=== PATIENT | male | born 1940 | race Caucasian/White ===

== ENCOUNTER 2016-10-10 10:09 | Inpatient (IN) | payer OTHER ==
[~2016-10-10] VITALS: Ht 160 cm; Wt 37.9 kg
[~2016-10-10 10:09] MED LIST: ADVAIR 250/501 DISK IH; CYANOCOBALAM1000 MCG PO; FUROSEMIDE20 MG PO; LISINOPRIL2.5 MG PO; LO-DOSE ASPIRIN81 M2 PO; METFORMIN HCL1000 MG PO; METOPROLOL SUCC25 MG PO; PREDNISONE10 M1 PO; SIMVASTATIN20 MG PO; SIMVASTATIN5 MG PO; SPIRIVA RESPIMAT4 GM IH
[2016-10-10 11:17] LABS: EOSINOPHIL (%) 0.4 % (0-5); HEMATOCRIT 41.5 % (38.0-50.0); IMMATURE GRANULOCYTE (%) 0.5 % (0.0-0.7); INSTRUMENT ABS NEUTROPHIL CT 6.3 K/uL; LYMPHOCYTE COUNT 0.8 K/uL (1.0-2.8); MCH 31.8 PG (29.0-34.0); MCV 96.3 FL (86-99); MEAN PLAT.VOLUME 9.8 uM^3 (9.0-12.4); MONOCYTE (%) 7.5 % (3-12); MONOCYTE COUNT 0.6 K/uL (0-0.8); NEUTROPHIL COUNT 6.3 K/uL (1.8-6.4); PLATELET COUNT 147 K/uL (156-360); RBC DIS.WIDTH-CV 14.7 % (11.8-14.6); RBC DIS.WIDTH-SD 52.5 % (39-53); RED BLOOD COUNT 4.31 M/uL (4.00-5.50); WHITE BLOOD COUNT 7.8 K/uL (4.1-10.2)
[2016-10-10 11:27] LABS: INTER. NORMALIZED RATIO 1.1; PROTHROMBIN TIME 11.5 (9.2-11.2); PTT 22.4 (25-32)
[2016-10-10 11:34] LABS: CHLORIDE 106 mEq/L (99-109); POTASSIUM 5.1 mEq/L (3.7-5.4); SODIUM 140 mEq/L (136-147)
[2016-10-10 11:35] LABS: MAGNESIUM 1.8 mg/dL (1.3-2.7)
[2016-10-10 11:36] LABS: GLUCOSE 224 mg/dL (70-99)
[2016-10-10 11:37] LABS: ANION GAP 15 MEQ/L (2-14)
[2016-10-10 11:39] LABS: GFR ESTIMATE (CALCULATED) > 59 mL/min/
[2016-10-10 11:40] LABS: UREA NITROGEN (BUN) 17 mg/dL (9-23)
[2016-10-10 11:44] LABS: TROP-I INTERPRETATION NEGATIVE; TROPONIN-I 0.01 ng/mL (0.0-0.30)
[2016-10-10 13:27] LABS: INFLUENZA A VIRAL ANTIGEN NEGATIVE; INFLUENZA B VIRAL ANTIGEN NEGATIVE
[2016-10-10 14:41] LABS: ADD MIUA? YES; BILIRUBIN NEGATIVE; BLOOD NEGATIVE; COLOR YELLOW ((YELLOW)); GLUCOSE (STRIP) 150; KETONES NEGATIVE; LEUKOCYTES SMALL; NITRITE NEGATIVE; PROTEIN (STRIP) 30; SPECIFIC GRAVITY 1.017 (1.000-1.030); UROBILINOGEN 0.2 MG/DL (0.2-1.0)
[2016-10-10 14:45] LABS: BACTERIA RARE /HPF; EPITHELIAL CELLS RARE /HPF; MUCUS TRACE /LPF; RED BLOOD CELLS 0-5 /HPF (0-5); WHITE BLOOD CELLS 0-5 /HPF (0-5)
[2016-10-10] MEDS ORDERED: FLOVENT 11120 INHALA IH (16:18)
[2016-10-10] MEDS ORDERED: METOPROLOL TART25 MG PO (16:18)
[2016-10-10] MEDS ORDERED: DUONEB 2.5-0.5 M3 ML AEROSOL (16:19)
[2016-10-10] MEDS ORDERED: LISINOPRIL2.5 MG PO (16:19)
[2016-10-10 18:37] LABS: POINT-OF-CARE METER ID UU13113702
[2016-10-10 18:52] LABS: TROP-I INTERPRETATION NEGATIVE; TROPONIN-I 0.17 ng/mL (0.0-0.30)
[2016-10-10 21:55] VITALS: BP 130/69
[2016-10-11 01:02] LABS: TROP-I INTERPRETATION NEGATIVE; TROPONIN-I 0.08 ng/mL (0.0-0.30)
[2016-10-11 04:00] VITALS: BP 131/69
[2016-10-11 07:18] LABS: ANION GAP 14 MEQ/L (2-14); CHLORIDE 109 MEQ/L (99-109); GFR ESTIMATE (CALCULATED) > 59 mL/min/; GLUCOSE 204 mg/dL (70-99); POTASSIUM 4.3 MEQ/L (3.7-5.4); SAMPLE HEMOLYSIS CHECK 0; SAMPLE ICTERIC CHECK 0; SAMPLE LIPEMIA CHECK 0; SODIUM 141 MEQ/L (136-147); UREA NITROGEN (BUN) 17 mg/dL (9-23)
[2016-10-11 07:59] VITALS: BP 109/64
[2016-10-11 11:11] VITALS: BP 108/64
[2016-10-11 11:16] LABS: POINT-OF-CARE METER ID UU14174225
[2016-10-11 12:33] LABS: TROP-I INTERPRETATION NEGATIVE; TROPONIN-I 0.04 ng/mL (0.0-0.30)
[2016-10-11 13:51] LABS: D-DIMER ELISA > 4.00 mg/L FEU (< 0.57)
[2016-10-11 16:00] VITALS: BP 106/65
[2016-10-11 19:44] VITALS: BP 116/65
[2016-10-12 00:10] VITALS: BP 112/66
[2016-10-12 04:43] VITALS: BP 110/57
[2016-10-12 07:10] LABS: HEMATOCRIT 37.1 % (38.0-50.0); MCH 31.4 PG (29.0-34.0); MCV 92.5 FL (86-99); MEAN PLAT.VOLUME 10.2 uM^3 (9.0-12.4); PLATELET COUNT 162 K/uL (156-360); RBC DIS.WIDTH-CV 14.8 % (11.8-14.6); RBC DIS.WIDTH-SD 50.4 % (39-53); RED BLOOD COUNT 4.01 M/uL (4.00-5.50); WHITE BLOOD COUNT 6.4 K/uL (4.1-10.2)
[2016-10-12 07:42] LABS: ANION GAP 9 MEQ/L (2-14); CHLORIDE 108 MEQ/L (99-109); GFR ESTIMATE (CALCULATED) > 59 mL/min/; GLUCOSE 216 mg/dL (70-99); POTASSIUM 4.2 MEQ/L (3.7-5.4); SAMPLE HEMOLYSIS CHECK 0; SAMPLE ICTERIC CHECK 0; SAMPLE LIPEMIA CHECK 0; SODIUM 141 MEQ/L (136-147); UREA NITROGEN (BUN) 15 mg/dL (9-23)
[2016-10-12 08:06] VITALS: BP 128/62
[2016-10-12 08:57] LABS: POINT-OF-CARE METER ID UU14174225
[2016-10-12 11:08] VITALS: BP 120/60
[2016-10-12 15:53] VITALS: BP 123/61
[2016-10-12 20:00] VITALS: BP 108/63
[2016-10-13] VITALS (7 sets, daily range): BP systolic 105–128; BP diastolic 58–85
[2016-10-13 07:39] LABS: HEMATOCRIT 37.6 % (38.0-50.0); MCH 31.6 PG (29.0-34.0); MCHC 33.5 G/DL (30.0-36.0); MCV 94.2 FL (86-99); PLATELET COUNT 160 K/uL (156-360); RBC DIS.WIDTH-CV 15.1 % (11.8-14.6); RED BLOOD COUNT 3.99 M/uL (4.00-5.50); WHITE BLOOD COUNT 8.3 K/uL (4.1-10.2)
[2016-10-13 07:57] LABS: ANION GAP 8 MEQ/L (2-14); CHLORIDE 103 MEQ/L (99-109); GFR ESTIMATE (CALCULATED) > 59 mL/min/; GLUCOSE 230 mg/dL (70-99); POTASSIUM 4.1 MEQ/L (3.7-5.4); SAMPLE HEMOLYSIS CHECK 0; SAMPLE ICTERIC CHECK 0; SAMPLE LIPEMIA CHECK 0; SODIUM 140 MEQ/L (136-147)
[2016-10-13 07:58] LABS: UREA NITROGEN (BUN) 24 mg/dL (9-23)
[2016-10-14 03:35] VITALS: BP 122/70
[2016-10-14 07:38] LABS: POINT-OF-CARE METER ID UU14174225
[2016-10-14 07:49] VITALS: BP 106/75
[2016-10-14 11:14] VITALS: BP 117/58
[2016-10-14 11:22] LABS: POINT-OF-CARE METER ID UU14174225
[2016-10-14 15:06] VITALS: BP 104/53
[2016-10-14 16:24] LABS: POINT-OF-CARE METER ID UU14174225
[2016-10-14 20:00] VITALS: BP 114/56
[2016-10-14 21:08] VITALS: BP 122/65
[2016-10-15] VITALS: BP 128/61
[2016-10-15 04:00] VITALS: BP 133/69
[2016-10-15 07:54] VITALS: BP 137/69
[2016-10-15 09:22] LABS: POINT-OF-CARE USER ID STWAMT
[2016-10-15 11:45] VITALS: BP 136/70
[2016-10-15 12:00] LABS: POINT-OF-CARE USER ID STWAMT
[2016-10-15 16:55] VITALS: BP 128/61
[2016-10-15 17:03] LABS: POINT-OF-CARE USER ID STWAMT
[2016-10-15 20:05] VITALS: BP 126/69
[2016-10-16 01:14] VITALS: BP 130/63
[2016-10-16 04:00] VITALS: BP 135/64
[2016-10-16 08:19] VITALS: BP 104/60
[2016-10-16 09:25] LABS: POINT-OF-CARE USER ID STWAMT
[2016-10-16 11:39] LABS: POINT-OF-CARE METER ID UU14174225
[2016-10-16 12:08] VITALS: BP 92/60
[2016-10-16 15:14] VITALS: BP 106/60
[2016-10-16 16:42] LABS: POINT-OF-CARE USER ID STWAMT
[2016-10-16 19:36] VITALS: BP 131/67
[2016-10-17 04:02] VITALS: BP 132/63
[2016-10-17 08:11] VITALS: BP 99/60
[2016-10-17 11:36] VITALS: BP 88/55
[2016-10-17 12:07] LABS: POINT-OF-CARE METER ID UU14174225
[2016-10-17 16:05] VITALS: BP 101/58
[2016-10-17 23:31] VITALS: BP 108/58
[2016-10-18 07:45] VITALS: BP 122/58
[2016-10-18 11:23] VITALS: BP 85/43
[2016-10-18 15:56] VITALS: BP 134/60
[2016-10-18 21:01] VITALS: BP 124/60
[2016-10-19 01:02] VITALS: BP 119/62
[2016-10-19 07:37] VITALS: BP 93/58
[2016-10-19 11:20] VITALS: BP 82/44
[2016-10-19 16:42] VITALS: BP 90/67
[2016-10-19 22:37] VITALS: BP 102/64
[2016-10-20 00:09] VITALS: BP 138/59
[2016-10-20 08:08] VITALS: BP 117/72
[2016-10-20 09:01] LABS: HEMATOCRIT 43.2 % (38.0-50.0); MCHC 34.3 G/DL (30.0-36.0); MCV 93.3 FL (86-99); MEAN PLAT.VOLUME 9.7 uM^3 (9.0-12.4); PLATELET COUNT 178 K/uL (156-360); RBC DIS.WIDTH-CV 14.2 % (11.8-14.6); RED BLOOD COUNT 4.63 M/uL (4.00-5.50); WHITE BLOOD COUNT 9.7 K/uL (4.1-10.2)
[2016-10-20 09:28] LABS: ANION GAP 9 MEQ/L (2-14); CHLORIDE 98 MEQ/L (99-109); GFR ESTIMATE (CALCULATED) > 59 mL/min/; GLUCOSE 131 mg/dL (70-99); POTASSIUM 3.8 MEQ/L (3.7-5.4); SAMPLE HEMOLYSIS CHECK 0; SAMPLE ICTERIC CHECK 0; SAMPLE LIPEMIA CHECK 0; SODIUM 137 MEQ/L (136-147); UREA NITROGEN (BUN) 20 mg/dL (9-23)
[2016-10-20 16:08] VITALS: BP 103/52
[2016-10-20 19:42] VITALS: BP 111/62
[2016-10-20 23:46] VITALS: BP 104/57
[2016-10-21 07:07] LABS: EOSINOPHIL (%) 0.6 % (0-5); EOSINOPHIL COUNT 0.1 K/uL (0-0.3); HEMATOCRIT 42.4 % (38.0-50.0); IMMATURE GRANULOCYTE (%) 1.4 % (0.0-0.7); IMMATURE GRANULOCYTE COUNT 0.1 K/uL; LYMPHOCYTE COUNT 1.3 K/uL (1.0-2.8); MCH 31.7 PG (29.0-34.0); MCHC 34.7 G/DL (30.0-36.0); MCV 91.4 FL (86-99); MEAN PLAT.VOLUME 10.2 uM^3 (9.0-12.4); MONOCYTE (%) 11.3 % (3-12); MONOCYTE COUNT 0.9 K/uL (0-0.8); NEUTROPHIL (%) 71.6 % (45-76); PLATELET COUNT 193 K/uL (156-360); RBC DIS.WIDTH-SD 47.4 % (39-53); RED BLOOD COUNT 4.64 M/uL (4.00-5.50); WHITE BLOOD COUNT 8.4 K/uL (4.1-10.2)
[2016-10-21 07:32] LABS: ANION GAP 8 MEQ/L (2-14); CHLORIDE 94 MEQ/L (99-109); GFR ESTIMATE (CALCULATED) > 59 mL/min/; GLUCOSE 184 mg/dL (70-99); SAMPLE HEMOLYSIS CHECK 0; SAMPLE ICTERIC CHECK 0; SAMPLE LIPEMIA CHECK 0; SODIUM 132 MEQ/L (136-147); UREA NITROGEN (BUN) 25 mg/dL (9-23)
[2016-10-21 07:33] LABS: POTASSIUM 4.6 MEQ/L (3.7-5.4)
[2016-10-21 07:36] VITALS: BP 118/79
[2016-10-21 14:29] VITALS: BP 90/50
[2016-10-22] VITALS: BP 87/56
[2016-10-22 07:14] LABS: EOSINOPHIL (%) 0.4 % (0-5); HEMATOCRIT 41.6 % (38.0-50.0); IMMATURE GRANULOCYTE (%) 1.3 % (0.0-0.7); IMMATURE GRANULOCYTE COUNT 0.1 K/uL; INSTRUMENT ABS NEUTROPHIL CT 6.7 K/uL; LYMPHOCYTE COUNT 1.3 K/uL (1.0-2.8); MCH 31.6 PG (29.0-34.0); MCHC 34.6 G/DL (30.0-36.0); MCV 91.2 FL (86-99); MEAN PLAT.VOLUME 9.8 uM^3 (9.0-12.4); MONOCYTE (%) 9.5 % (3-12); MONOCYTE COUNT 0.9 K/uL (0-0.8); NEUTROPHIL (%) 74.2 % (45-76); NEUTROPHIL COUNT 6.7 K/uL (1.8-6.4); PLATELET COUNT 191 K/uL (156-360); RBC DIS.WIDTH-SD 47.5 % (39-53); RED BLOOD COUNT 4.56 M/uL (4.00-5.50); WHITE BLOOD COUNT 9.1 K/uL (4.1-10.2)
[2016-10-22 07:44] LABS: ANION GAP 9 MEQ/L (2-14); CHLORIDE 97 MEQ/L (99-109); GFR ESTIMATE (CALCULATED) > 59 mL/min/; POTASSIUM 4.3 MEQ/L (3.7-5.4); SAMPLE HEMOLYSIS CHECK 0; SAMPLE ICTERIC CHECK 0; SAMPLE LIPEMIA CHECK 0; SODIUM 134 MEQ/L (136-147); UREA NITROGEN (BUN) 24 mg/dL (9-23)
[2016-10-22 07:46] LABS: GLUCOSE 94 mg/dL (70-99)
[2016-10-22 08:47] VITALS: BP 90/51
[2016-10-22 16:29] VITALS: BP 114/63
[2016-10-22 23:17] VITALS: BP 120/57
[2016-10-23 07:54] VITALS: BP 108/56
[2016-10-23 14:59] LABS: POINT-OF-CARE METER ID UU14174225
[2016-10-23 16:00] VITALS: BP 116/57
[2016-10-24 00:53] VITALS: BP 121/64
[2016-10-24 06:58] LABS: EOSINOPHIL (%) 0.3 % (0-5); HEMATOCRIT 42.6 % (38.0-50.0); IMMATURE GRANULOCYTE (%) 1.1 % (0.0-0.7); IMMATURE GRANULOCYTE COUNT 0.1 K/uL; INSTRUMENT ABS NEUTROPHIL CT 7.6 K/uL; LYMPHOCYTE COUNT 1.2 K/uL (1.0-2.8); MCH 31.5 PG (29.0-34.0); MCHC 34.7 G/DL (30.0-36.0); MCV 90.6 FL (86-99); MEAN PLAT.VOLUME 9.7 uM^3 (9.0-12.4); MONOCYTE COUNT 0.8 K/uL (0-0.8); NEUTROPHIL (%) 78.6 % (45-76); NEUTROPHIL COUNT 7.6 K/uL (1.8-6.4); PLATELET COUNT 196 K/uL (156-360); RBC DIS.WIDTH-CV 13.8 % (11.8-14.6); RBC DIS.WIDTH-SD 46.1 % (39-53); WHITE BLOOD COUNT 9.7 K/uL (4.1-10.2)
[2016-10-24 07:15] LABS: ANION GAP 11 MEQ/L (2-14); CHLORIDE 97 MEQ/L (99-109); GFR ESTIMATE (CALCULATED) > 59 mL/min/; GLUCOSE 91 mg/dL (70-99); SAMPLE HEMOLYSIS CHECK 0; SAMPLE ICTERIC CHECK 0; SAMPLE LIPEMIA CHECK 0; SODIUM 133 MEQ/L (136-147); UREA NITROGEN (BUN) 18 mg/dL (9-23)
[2016-10-24 08:01] VITALS: BP 94/55
[2016-10-24 16:03] VITALS: BP 92/44
[2016-10-24 16:39] VITALS: BP 147/58
[2016-10-24 23:36] VITALS: BP 106/67
[2016-10-25 08:00] VITALS: BP 101/64
[2016-10-25 08:01] LABS: EOSINOPHIL (%) 0.6 % (0-5); EOSINOPHIL COUNT 0.1 K/uL (0-0.3); HEMATOCRIT 39.8 % (38.0-50.0); IMMATURE GRANULOCYTE (%) 1.1 % (0.0-0.7); IMMATURE GRANULOCYTE COUNT 0.1 K/uL; INSTRUMENT ABS NEUTROPHIL CT 7.5 K/uL; MCH 31.7 PG (29.0-34.0); MCHC 34.2 G/DL (30.0-36.0); MCV 92.8 FL (86-99); MEAN PLAT.VOLUME 9.8 uM^3 (9.0-12.4); MONOCYTE (%) 7.2 % (3-12); MONOCYTE COUNT 0.7 K/uL (0-0.8); NEUTROPHIL (%) 80.2 % (45-76); NEUTROPHIL COUNT 7.5 K/uL (1.8-6.4); PLATELET COUNT 179 K/uL (156-360); RBC DIS.WIDTH-CV 14.1 % (11.8-14.6); RBC DIS.WIDTH-SD 47.8 % (39-53); RED BLOOD COUNT 4.29 M/uL (4.00-5.50); WHITE BLOOD COUNT 9.3 K/uL (4.1-10.2)
[2016-10-25 08:32] LABS: ANION GAP 8 MEQ/L (2-14); CHLORIDE 99 MEQ/L (99-109); GFR ESTIMATE (CALCULATED) > 59 mL/min/; GLUCOSE 91 mg/dL (70-99); POTASSIUM 4.6 MEQ/L (3.7-5.4); SAMPLE HEMOLYSIS CHECK 0; SAMPLE ICTERIC CHECK 0; SAMPLE LIPEMIA CHECK 0; SODIUM 135 MEQ/L (136-147); UREA NITROGEN (BUN) 18 mg/dL (9-23)
[2016-10-25 11:00] VITALS: BP 139/98
[2016-10-25 16:00] VITALS: BP 123/66
[2016-10-25 16:04] LABS: POINT-OF-CARE METER ID UU14174225
[2016-10-26] VITALS: BP 119/60
[2016-10-26 07:18] LABS: EOSINOPHIL (%) 0.4 % (0-5); IMMATURE GRANULOCYTE (%) 1.1 % (0.0-0.7); IMMATURE GRANULOCYTE COUNT 0.1 K/uL; INSTRUMENT ABS NEUTROPHIL CT 6.6 K/uL; LYMPHOCYTE COUNT 1.1 K/uL (1.0-2.8); MCH 31.9 PG (29.0-34.0); MCHC 34.7 G/DL (30.0-36.0); MCV 91.8 FL (86-99); MEAN PLAT.VOLUME 10.2 uM^3 (9.0-12.4); MONOCYTE (%) 7.5 % (3-12); MONOCYTE COUNT 0.6 K/uL (0-0.8); NEUTROPHIL (%) 78.4 % (45-76); NEUTROPHIL COUNT 6.6 K/uL (1.8-6.4); PLATELET COUNT 186 K/uL (156-360); RBC DIS.WIDTH-SD 47.4 % (39-53); RED BLOOD COUNT 4.14 M/uL (4.00-5.50); WHITE BLOOD COUNT 8.4 K/uL (4.1-10.2)
[2016-10-26 07:46] VITALS: BP 118/63
[2016-10-26 07:58] LABS: ANION GAP 9 MEQ/L (2-14); CHLORIDE 99 MEQ/L (99-109); GFR ESTIMATE (CALCULATED) > 59 mL/min/; GLUCOSE 60 mg/dL (70-99); SAMPLE HEMOLYSIS CHECK 0; SAMPLE ICTERIC CHECK 0; SAMPLE LIPEMIA CHECK 0; SODIUM 135 MEQ/L (136-147); UREA NITROGEN (BUN) 16 mg/dL (9-23)
[2016-10-26 11:32] VITALS: BP 93/55
[2016-10-26 11:41] LABS: POINT-OF-CARE METER ID UU14188625
[2016-10-26 12:50] VITALS: BP 110/56
[2016-10-26] MEDS ORDERED: LOPRESSOR25 MG PO (13:03)
[2016-10-26] MEDS ORDERED: PRAVASTATIN SOD40 MG PO (13:03)
[2016-10-26] MEDS ORDERED: BENADRYL25 MG PO (13:03)
[2016-10-26] MEDS ORDERED: FUROSEMIDE20 MG PO (13:04)
[2016-10-26] MEDS ORDERED: TYLENOL REGULA325 MG PO (13:04)
[2016-10-26] MEDS ORDERED: LEVEMIR100 UNIT/2 SC (13:05)
[2016-10-26] MEDS ORDERED: NOVOLOG PE100 UNITS/ SC (13:06)
[2016-10-26 15:17] VITALS: BP 154/65
== END 2016-10-26 15:54 | DRG 189 ==
LOC: EME 10:09 → EDOF 16:24 → 5SOUTH 16:24
PROVIDERS: Emergency Medicine; Internal Medicine; Physician Assistant Medical
PROC: 5A09357 Assistance with Respiratory Ventilation, Less than 24 Consecutive Hours, Continuous Positive Airway Pressure (ICD-10-PCS; principal; 2016-10-14)
DX: J96.21 Acute and chronic respiratory failure with hypoxia (principal); J44.1 Chronic obstructive pulmonary disease with (acute) exacerbation; I50.23 Acute on chronic systolic (congestive) heart failure; I69.351 Hemiplegia and hemiparesis following cerebral infarction affecting right dominant side; R64 Cachexia; I25.10 Atherosclerotic heart disease of native coronary artery without angina pectoris; E78.5 Hyperlipidemia, unspecified; Z99.81 Dependence on supplemental oxygen; I95.9 Hypotension, unspecified; Z87.891 Personal history of nicotine dependence; I25.2 Old myocardial infarction; Z95.1 Presence of aortocoronary bypass graft; J84.10 Pulmonary fibrosis, unspecified; I27.2 Other secondary pulmonary hypertension; I07.1 Rheumatic tricuspid insufficiency; E11.65 Type 2 diabetes mellitus with hyperglycemia; I11.0 Hypertensive heart disease with heart failure
CPT/HCPCS: 71010; 71020; 71260; 71275; 76882; 80048; 81003; 82140; 82565; 82948; 83605; 83735; 84484; 84520; 85025; 85027; 85379; 85610; 85730; 87040; 87086; 87502; 93005; 93306; 94640; 94640 76; 94660; 94668; 94760; 94799; 97530 GO; 97530 GP; 99202; 99281; 99285; J0692; J1650; J1815; J2405; J2920; J7030; J7040; J7050; J7512

== ENCOUNTER 2016-11-15 02:07 | Emergency (ER) | payer OTHER ==
[~2016-11-15] VITALS: Ht 157.5 cm; Wt 40.6 kg
[2016-11-15 02:07] VITALS: BP 00/00
[~2016-11-15 02:07] MED LIST changes: +BENADRYL25 MG PO; +DUONEB 2.5-0.5 M3 ML AEROSOL; +FLOVENT 11120 INHALA IH; +LEVEMIR100 UNIT/2 SC; +LOPRESSOR25 MG PO; +METOPROLOL TART25 MG PO; +NOVOLOG PE100 UNITS/ SC; +PRAVASTATIN SOD40 MG PO; +TYLENOL REGULA325 MG PO
[2016-11-15 02:31] LABS: BILIRUBIN NEGATIVE; BLOOD NEGATIVE; GLUCOSE (STRIP) 150; KETONES NEGATIVE; LEUKOCYTES NEGATIVE; NITRITE NEGATIVE; PROTEIN (STRIP) NEGATIVE; SPECIFIC GRAVITY 1.019 (1.000-1.030)
[2016-11-15 02:33] LABS: ADD MIUA? NO; COLOR DK YELLOW ((YELLOW)); UCUL ADDED? NO
[2016-11-15 02:43] LABS: AMPHETAMINE NEGATIVE (500 ng/mL); BARBITURATES NEGATIVE (200 ng/mL); BENZODIAZEPINES NEGATIVE (150 ng/mL); COCAINE NEGATIVE (150 ng/mL); INTERNAL CONTROLS VALID? YES; METHADONE NEGATIVE (200 ng/mL); METHAMPHETAMINE NEGATIVE (500 ng/mL); OPIATES (MORPHINE) NEGATIVE (100 ng/mL); OXYCODONE NEGATIVE (100 ng/mL); PHENCYCLIDINE NEGATIVE (25 ng/mL); PROPOXYPHENE NEGATIVE (300 ng/mL); THC CANNABINOIDS NEGATIVE (50 ng/mL); TRICYCLIC ANTIDEPRESSANTS NEGATIVE (300 ng/mL)
== END 2016-11-15 02:22 ==
LOC: EME 02:07
PROVIDERS: Emergency Medicine
DX: J96.01 Acute respiratory failure with hypoxia (principal); Z99.81 Dependence on supplemental oxygen; I46.9 Cardiac arrest, cause unspecified; I45.10 Unspecified right bundle-branch block; I69.351 Hemiplegia and hemiparesis following cerebral infarction affecting right dominant side; J44.9 Chronic obstructive pulmonary disease, unspecified; E11.9 Type 2 diabetes mellitus without complications; I10 Essential (primary) hypertension; Z95.1 Presence of aortocoronary bypass graft
CPT/HCPCS: 80048; 81003; 82150; 83605; 83690; 84484; 85025; 85610; 85730; 86900; 86901; 87040; 93005; 99281; 99285; G0480; J0461; J7644